=== PATIENT | male | born 1990 | race African-American/Black ===

== ENCOUNTER 2024-12-04 16:26 | Emergency (ER) | payer OTHER ==
[~2024-12-04] VITALS: Ht 172.7 cm; Wt 56.6 kg
[2024-12-04 17:27] VITALS: TEMP 98.6
[2024-12-04 17:30] VITALS: BP 170/82; PULSE 87; RESP 16; O2SAT 96
[2024-12-04] MEDS ORDERED: BENZ2TAB84 PO (19:35)
[2024-12-04] MEDS ORDERED: HYDR-4808 PO (19:35)
[2024-12-04] MEDS ORDERED: RISP-31 PO (19:35)
[2024-12-04] MEDS ORDERED: RISP4TAB94 PO (19:35)
[2024-12-04] MEDS ORDERED: DIVA-112 PO (19:35)
[2024-12-04] MEDS ORDERED: MIRT-89 PO (19:35)
[2024-12-04] MEDS ORDERED: DIPH50CA35 PO (19:35)
[2024-12-04] MEDS ORDERED: MULT-1203 PO (19:35)
[2024-12-04] MEDS ORDERED: QUET25TA PO ×2 (19:35)
[2024-12-04] MEDS ORDERED: OXYB5TAB20 PO (19:35)
[2024-12-04] MEDS ORDERED: TRAZ150T80 PO (19:35)
[2024-12-04] MEDS ORDERED: CLON0.1T2 PO (19:35)
[2024-12-04] MEDS ORDERED: ASCO500C18 PO (19:35)
[2024-12-04] MEDS: ACETAMINOPHEN 500 MG TABLET PO ONE (19:37)
== END 2024-12-05 | disposition home or self-care (01) ==
LOC: EMS 16:26
DX: S01.411A Laceration without foreign body of right cheek and temporomandibular area, initial encounter (principal); S09.8XXA Other specified injuries of head, initial encounter; M25.561 Pain in right knee; F41.9 Anxiety disorder, unspecified; W18.39XA Other fall on same level, initial encounter; Y93.89 Activity, other specified; Y92.89 Other specified places as the place of occurrence of the external cause; Y99.8 Other external cause status
CPT/HCPCS: 70450; 70486; 99284